=== PATIENT | female | born 1945 | race Caucasian/White ===

== ENCOUNTER → 2021-12-29 12:03 | Outpatient (CLI) | payer MEDICARE, SELFPAY ==
--- NOTE | ~2021-12-29 | MM_ITS ---
EXAMINATION: MM screening [facility] HISTORY: Screening mammogram TECHNIQUE: Craniocaudal and mediolateral oblique 3-D tomosynthesis images were obtained and synthetic 2-D images were generated. CAD analysis was submitted and interpreted. COMPARISON: 01/27/2019, 02/01/2017, 09/22/2015 BREAST PARENCHYMAL COMPOSITION: There are scattered areas of fibroglandular density. FINDINGS: A stable mass in the upper outer quadrant of the right breast is considered benign given th e lack of interval change. There is no suspicious mass, calcification, or architectural distortion to suggest malignancy in either breast. There has been no suspicious interval change. IMPRESSION: 1. No mammographic evidence of malignancy. 2. Recommend routine screening mammography in one year. BI-RADS Category 2: Benign finding(s). Reviewed, dictated and finalized at location A.
--- NOTE | ~2021-12-29 | DEXA_ITS ---
Bone Density Report Name: DIONNE RUIZ Age: 76 Sex: Female Ethnicity: White Date of : 1945 Indication: postmenopausal; screening for osteoporosis; Referring Provider: Marvel Calles Study: Bone densitometry was performed. Exam Date: December 29, 2021 Accession number: [id number] Bone Density: Region BMD T-score Z-score Classification AP Spine (L1-L4) 1.004 -0.4 2.0 Normal Femoral Neck (Left) 0.684 -1.5 0.6 Osteopenia Total Hip (Left) 0.837 -0.9 0.9 Normal Femoral Neck (Right) 0.741 -1.0 1.1 Normal Total Hip (Right) 0.873 -0.6 1.2 Normal Total Hip Mean 0.855 -0.8 1.1 Normal World Health Organization criteria for BMD impression classify patients as: Normal (T-score at or above -1.0), Osteopenia (T-score between -1.0 and -2.5), or Osteoporosis (T-score at or below -2.5). 10-year Fracture Risk(1): Major Osteoporotic Fracture 11% Hip Fracture 1.9% Reported Risk Factors: [place] (), Neck BMD=0.684, BMI=27.5 (1) FRAX(R) Version 3.08. Fracture probability calculated for an untreated patient. Fracture probability may be lower if the patient has received treatment. Previous Exams: Region Exam Age BMD T-score BMD Change BMD Change Date g/cm2 vs Baseline vs Previous AP Spine(L1-L4) 12/29/2021 76 1.004 -0.4 0.042* 0.042* 01/27/2019 73 0.962 -0.8 Total Hip(Left) 12/29/2021 76 0.837 -0.9 0.009 0.009 01/27/2019 73 0.828 -0.9 Total Hip(Right) 12/29/2021 76 0.873 -0.6 0.014 0.014 01/27/2019 73 0.859 -0.7 *Denotes significance at 95% confidence level, LSC for AP Spine = 0.022 g/cm2, LSC for Total Hip = 0.027 g/cm2 Clinical Information Provided by Patient: Patient maximum height was 66 Menopause Age: 60 Does not regularly consume dairy products Onset of menses at age 15 Number of children 0 Impression: The patient has low bone mass, based on the Left Femoral Neck T-score. The patient has an estimated ten-year risk of hip fracture of 1.9% and an estimated ten-year risk of major fracture of 11%, based on the WHO FRAX algorithm. No significant bone loss was observed. Discussion: BONE DENSITY IS LOW AT ONE OR MORE SKELETAL SITES. This patient's lowest T-score is low at one or more skeletal sites. It meets the World Health Organization's (WHO) criteria for ?low bone mass? (T-score between -1.0 and -2.5). The patient's 10-year risk of fracture as calcul
== END ==
PROVIDERS: PCP Family Medicine; Visit Provider Family Medicine
DX: Z12.31 Encounter for screening mammogram for malignant neoplasm of breast (principal); Z78.0 Asymptomatic menopausal state; M85.852 Other specified disorders of bone density and structure, left thigh
CPT/HCPCS: 77063; 77067; 77080

== ENCOUNTER 2022-10-25 09:33 | Emergency (ER) | payer OTHER, MEDICARE, SELFPAY ==
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
[2022-10-25 09:52] VITALS: BP 156/72; PULSE 72; RESP 16; TEMP 36.6; O2SAT 99
== END 2022-10-25 10:58 | disposition home or self-care (01) ==
PROVIDERS: Emergency Provider Nurse Practitioner; PCP Family Medicine
DX: S80.12XA Contusion of left lower leg, initial encounter (principal); W20.8XXA Other cause of strike by thrown, projected or falling object, initial encounter; E78.00 Pure hypercholesterolemia, unspecified
CPT/HCPCS: 73590; 99213; G0463

== ENCOUNTER 2023-10-23 13:27 | Outpatient (CLI) | payer MEDICARE, SELFPAY ==
--- NOTE | ~2023-10-23 | US_ITS ---
Soft tissue ultrasound of the left upper extremity CLINICAL HISTORY: Palpable lump TECHNIQUE: Sonographic imaging performed of the left wrist region at the area of palpable concern. FINDINGS: At the area of concern, there is a 1.0 x 0.9 x 0.6 cm cyst, which appears to connect via a thin neck of fluid to an additional cystic area measuring 1.0 x 0.7 x 0.7 cm. No solid or otherwise s uspicious lesion identified sonographically. IMPRESSION: Somewhat bilobed ganglion cyst, as detailed above. Reviewed, dictated and finalized at location M.
== END 2023-10-23 13:28 ==
LOC: GOSHIMG 13:27
PROVIDERS: PCP Family Medicine; Visit Provider Physician Assistant
DX: R22.32 Localized swelling, mass and lump, left upper limb (principal)
CPT/HCPCS: 76882

== ENCOUNTER 2024-03-13 13:44 | Outpatient (CLI) | payer MEDICARE, SELFPAY ==
--- NOTE | ~2024-03-13 | MM_ITS ---
EXAMINATION: MM screening [facility] HISTORY: Screening TECHNIQUE: Craniocaudal and mediolateral oblique 3-D tomosynthesis images were obtained and synthetic 2-D images were generated. CAD analysis was submitted and interpreted. COMPARISON: Comparison to multiple prior studies sequentially, with oldest reviewed study dated 09/21. BREAST PARENCHYMAL COMPOSITION: Not dense: There are scattered areas of fibroglandular density. FINDINGS: There is no evidence of suspicious mass, calcification, or architectural distortion to sugg est malignancy in either breast. There has been no suspicious interval change. IMPRESSION: 1. No mammographic evidence of malignancy. 2. Recommend routine screening mammography in one year. BI-RADS Category 1: Negative Reviewed, dictated and finalized at location B. E HAND
== END 2024-03-13 13:45 | disposition home or self-care (01) ==
LOC: MICIMG 13:45
PROVIDERS: PCP Family Medicine; Visit Provider Family Medicine
DX: Z12.31 Encounter for screening mammogram for malignant neoplasm of breast (principal)
CPT/HCPCS: 77063; 77067

== ENCOUNTER 2024-04-09 05:54 | Day surgery (SDC) | payer MEDICARE, SELFPAY ==
[2024-04-09 06:40] VITALS: BP 178/76; PULSE 60; RESP 16; TEMP 37.1; O2SAT 98
[2024-04-09] MEDS: LACTATED RINGERS 1,000 ML 30 ML IV CONT (06:40)
--- NOTE | 2024-04-09 06:43 | WPDHPUPDATE1 ---
History and Physical Update Update Date/Time: 04/09/24 06:43 Patient seen and examined in pre-operative holding area. No interval change in medical history or symptoms. Patient recalls previous discussion of benefits and alternatives to procedure. Continues to desire to proceed with left ulnar wrist ganglion excision. Reviewed procedure, post-op expectations and risks including but not limited to bleeding, infection, injury to tendon/nerve/vessel, decreased hand function, stiffness, RSD, no change or worsening of symptoms, recurrence. I discussed the possible use of assistants and their participation in the case. Patient stated understanding and signed the consent form wishing to proceed.
--- NOTE | 2024-04-09 06:44 | W.PM.PROC2 ---
Procedure Note - Detailed Date of Procedure 04/09/24 Pre-op Diagnosis Ganglion Cyst Left Ulnar Wrist Post-op Diagnosis Same Procedure Performed left ulnar wrist ganglion excision Surgeon Waldo Stock MD Precision Assembler Bench beto zuluaga pa-c Anesthesia MAC Description of Procedure INFORMED CONSENT: The patient was seen and examined and marked in the pre-op area.? The patient signed the consent form. PROCEDURE IN DETAIL:The patient taken back to OR on the stretcher in supine position. Time out performed with anesthesia, surgeon and staff agreeing on patient's name site and surgery to be performed SCDs were placed on the lower extremities and inflated. A tourniquet was placed on {left} upper extremity and antibiotics given IV After anesthesia administered sedation I injected {7}cc 1%lido with epi and 0.5% marcaine plain at the operative site The?{left upper extremity}?was prepped and draped in sterile fashion the??{left upper extremity} was? exsanguinated with Esmarch bandage and tourniquet inflated to 250mmHg I proceeded with making a longitudinal incision over the left ulnar wrist mass through skin and dermis with a 15 blade scalpel. Littler scissors were used to spread down to the cyst capsule. I proceeded with circumferential dissection around this cyst that appeared to be coming from the ulnocarpal joint. The mass was transected at the joint capsule with bipolar cautery. I irrigated with normal saline. I repaired the capsular defect with 4-0 Vicryl suture. 4-0 Monocryl was used for dermal and subcuticular closure. A dressing of Dermabond, 4x4, lauren, and a volar splint was applied for patient safety, security, and comfort and secured with an maxi bandage after the tourniquet was let down noting the hand was warm and well perfused. The patient was then awaken from anesthesia and transferred to the recovery room in stable condition.? Complications - none EBL- 0cc Disposition - home in stable conditions Beto Zuluaga PA-C was essential for positioning, retraction, closure and dressing placement [facility] Billing Surgery - Charge Forward: Surgery Billing ([id number] for beto)
--- NOTE | 2024-04-09 06:52 | P.PNAN_ITS ---
Anes - Initial Pre Proc Eval Procedure: Operation Date: 04/09/24 07:30 Proposed Procedures p Excision Ganglion Cyst Left Ulnar Wrist - Waldo Stock MD Date/Time: 04/09/24 06:52 Surgeon: Waldo Stock MD Pre Op Diagnosis: Ganglion Cyst Left Ulnar Wrist Patient Data Age: 78 Gender: F Height: 1.65 m Weight: 75.35 kg Last Vital Signs Temp 37.1 C 04/09/24 06:40 Pulse 60 04/09/24 06:40 Resp 16 04/09/24 06:40 BP 178/76 H 04/09/24 06:40 Pulse Ox 98 04/09/24 06:40 O2 Del Method Room Air 04/09/24 06:40 Allergies Allergy/AdvReac Type Severity Reaction Status Date / Time Penicillins Allergy Severe ANAPHYLACTIC Verified 04/09/24 06:13 SHOCK codeine Allergy Unknown HEART Verified 04/09/24 06:13 PALPITATIONS erythromycin base Allergy Unknown NAUSEA,STOMACH Verified 04/09/24 06:13 PAIN Home Medications ?Medication ?Instructions ?Recorded ?Confirmed ?Type buspirone 5 mg tablet 5 mg PO BID PRN anxiety #180 tabs 05/27/23 04/09/24 Rx levothyroxine 25 mcg tablet 12.5 mcg (1/2 x 25 mcg) PO DAILY 01/06/24 04/09/24 Rx #45 tabs cholecalciferol (vitamin D3) 1 tablet PO DIRECTED 03/23/24 04/09/24 History diphenhydramine HCl 1 tablet PO DIRECTED PRN 03/23/24 04/09/24 History Allergies psyllium husk 1 cap PO DIRECTED 03/23/24 04/09/24 History Patient hx anesthesia problems: none Family hx anesthesia problems: none Results Review: All pre-operative results and documents have been reviewed as part of the pre- operative evaluation. [facility] Past Medical History Medical History (Updated 04/07/24 @ 07:51 by Kevin Fontenot DO) Hypothyroidism Pure hypercholesterolemia Skin lesion Family History Family History Sibling Hypertension Mother Family history of malignant neoplasm of thyroid Family history of throat cancer Social History Social History (Reviewed 02/24/24 @ 13:57 by LILA Martinez Smoking status: Never smoker Second hand tobacco smoke exposure: No Alcohol intake: current Alcohol use details: occasional Substance use: never Substance use type: does not use Living arrangements: with family Occupation/Education: retired Gender identity (if verbalized by the patient): Female Sexual Orientation (if Verbalized by the Patient): Straight or Heterosexual Anes - Eval Final PreProcedure Day of Procedure 04/09/24 06:52 Patient weight: overweight Heart: regular rate and rhythm Lungs: clear to auscultation Airway: Mallampati scale class II Neurological: alert and oriented Last oral intake: >/= 8 hours ASA classification: II Emergent: no Anesthetic plan: proceed Anesthesia type and monitoring: general GIVS and standard monitoring Results Review: All pre-operative results and documents have been reviewed as part of the pre- operative evaluation. Informed Consent: The patient's anesthetic plan and its attendant risks and benefits were discussed with the patient/family/POA. Questions were solicited and answers provided to the satisfaction of the patient/family/POA.
[2024-04-09] MEDS: BUPivacaine HCL 0.5% PF 30 ML VIAL 5 ML INFILTRATE (07:21)
[2024-04-09] MEDS: ceFAZolin SODIUM 2 GM/20 ML SW SYRINGE IV PUSH (07:21)
[2024-04-09 07:50] VITALS: BP 113/60; PULSE 57; RESP 16; O2SAT 97
--- NOTE | 2024-04-09 07:59 | WPDANESPN ---
Anes - Prog Note Post-Op Date/Time: 04/09/24 07:59 Cardiovascular status: normal Respiratory status: normal Airway patency: baseline Mental status: baseline Post-Op hydration status: normal Vital Signs: Last Vital Signs Temp 37.1 C 04/09/24 06:40 Pulse 57 L 04/09/24 07:50 Resp 16 04/09/24 07:50 BP 113/60 04/09/24 07:50 Pulse Ox 97 04/09/24 07:50 O2 Del Method Room Air 04/09/24 07:50 Pain Score (VAS): 0 Post-procedural complaints: none Patient Feedback: Patient satisfied with anesthetic care. Other Findings: Patient vital signs back to baseline. Patient denies nausea and vomiting. Patient's pain under control. Patient OK for discharge.
[2024-04-09 08:00] VITALS: BP 121/68; PULSE 58; RESP 16; O2SAT 100
[2024-04-09 08:10] VITALS: BP 117/91; PULSE 51; RESP 16; O2SAT 100
== END 2024-04-09 08:26 ==
PROVIDERS: PCP Family Medicine; Visit Provider Plastic Surgery
CPT/HCPCS: 25111

== ENCOUNTER 2024-04-09 08:02 | Outpatient (NON) | payer MEDICARE, SELFPAY ==
--- OUTSIDE RECORDS SUMMARY | 2024-04-17 15:51 | XMS_ITS | Encounter Summary ---
Author Organization [facility] Address [facility] [place] [address] [place] [address] Care Team Providers Care Clerical Warehouseman Name Role Phone Unavailable Primary Care Provider Unavailabl e Encounter Details Date Type Department Care Team (Late st Contact Info) Description 09/18/2011 Abstract [facility] [address] [place], [place] [id number] Jaswant Chávez MD [address] [place] [address] Social History Tobacco Use Types Packs/Day Years Used Date Smoking Tobacco: Never Assessed Comments Unknown Sex and Gender Information Value Date Recorded Sex Assigned at Not on file Legal Sex Female 8:15 PM CDT Gender Identity Not on file Sexual Orientation Not on file documented as of this encounter Plan of Treatment Not on file documented as of this encounter Visit Diagnoses Diagnosis Sensorineural hearing loss Sensorineural hearing loss, unspecified documented in this encounter
--- OUTSIDE RECORDS SUMMARY | 2024-04-17 15:51 | XMS_ITS | Clinical Summary ---
Author Organization [facility] Address [address] [place] [address]. [place], [place] [id number] [place] [id number] Care Team Providers Care Guest Relations Agent Name Role Phone Unavailable Primary Care Provider Unavailabl e Social History Tobacco Use Types Packs/Day Years Used Date Smoking Tobacco: Never Assessed Comments Unknown Sex and Gender Information Value Date Recorded Sex Assigned at Not on file Legal Sex Female 8:15 PM CDT Gender Identity Not on file Sexual Orientation Not on file Plan of Treatment Health Maintenance Due Date Last Done Comments Hepatitis C 10/27/1965 DTaP, Tdap and Td Vaccines ( 1 - Tdap) 10/27/1966 Zoster Vaccines (1 of 2) 10/27/1997 Dexa Scan (General) 10/27/2012 Pneumococcal Vaccine: 65+ Ye ars (1 of 1 - PCV) 10/27/2012 RSV Immunization or 60+ Years (1 - 1-dose 75+ series) 10/27/2022 COVID-19 Vaccine ( - 2023-2 5 season) 2023 Influenza Adult (#1) 2024 Meningococcal Vaccine Aged Out No darren perla eligible based on patient's age to complete this topic RSV Immunizations Under 20 Months Aged Out No longer eligible based on patient's age to complete this topic
--- OUTSIDE RECORDS SUMMARY | 2024-04-17 16:03 | XMS_ITS | Encounter Summary ---
Author Organization [facility] Address [address] [place] [address] Care Team Providers Care Operator Prefinish Name Role Phone Unavailable Primary Care Provider Unavailabl e Reason for Visit * Reason Onset Date Comments Information 11/02/2018 YAMILETH KEARNEY PCP REFERRAL Encounter Details Date Type Department Care Team (Late st Contact Info) Description 11/02/2018 Nurse Triage Verna Nurse saloon keeper [address] [place] [address] Jose Guaman Social History Tobacco Use Types Packs/Day Years Used Date Smoking Tobacco: Never Assessed Sex and Gender Information Value Date Recorded Sex Assigned at Not on file Gender Identity Not on file Sexual Orientation Not on file documented as of this encounter Miscellaneous Notes * Telephone Encounter - Jose Guaman - 11/02/2018 10:09 AM CDT Images from the original note were not included. Reason for Disposition ??? Patient instructed how to find an [facility] provider? Protocols used: SERGIO CARSON Per conversation with patient the following PCP's were referred to and patient stated will contact herself in the morning to establish care with. * Telephone Encounter - Jose Guaman - 11/02/2018 9:47 AM CDT Regarding: PCP referral ----- Message from Jose Guaman sent at 11/02/2018 9:47 AM CDT ----- Patient's address on file: No address on file. Patient's current location: Same as above documented in this encounter Plan of Treatment Not on file documented as of this encounter Visit Diagnoses Not on filedocumented in this encounter
--- OUTSIDE RECORDS SUMMARY | 2024-04-17 16:03 | XMS_ITS | Clinical Summary ---
Author Organization [facility] Address [address] [place] [address] Care Team Providers Care Licensing Services Clerk Name Role Phone Unavailable Primary Care Provider Unavailabl e Social History Tobacco Use Types Packs/Day Years Used Date Smoking Tobacco: Never Assessed Sex and Gender Information Value Date Recorded Sex Assigned at Not on file Gender Identity Not on file Sexual Orientation Not on file Plan of Treatment Health Maintenance Due Date Last Done Comments DTAP/TDAP/TD VACCINES (1 - Tdap) 10/27/1966 ZOSTER VACCINE (1 of 2) 10/27/1997 OSTEOPOROSIS SCREENING 10/27/2012 PNEUMOCOCCAL VACCINE 65+ YEARS (1 of 1 - PCV) 10/28/19 13 RSV VACCINE (60+ or ) (1 - 1-dose 75+ series) 10/27/2022 INFLUENZA VACCINE (#1) 2023
== END 2024-04-09 08:03 | disposition home or self-care (01) ==
PROVIDERS: PCP Family Medicine; Visit Provider Plastic Surgery
DX: M67.432 Ganglion, left wrist (principal)
CPT/HCPCS: 88305

== ENCOUNTER 2025-02-08 17:00 | Outpatient (CLI) | payer MEDICARE, SELFPAY ==
--- OUTSIDE RECORDS SUMMARY | 2025-02-08 17:04 | XMS_ITS | Clinical Summary ---
Author Organization [facility] Address [address] [place] [address] Care Team Providers Care Medical Record Specialist Name Role Phone Unavailable Primary Care Provider Unavailabl e Social History Tobacco Use Types Packs/Day Years Used Date Smoking Tobacco: Never Assessed Comments Unknown Sex and Gender Information Value Date Recorded Sex Assigned at Not on file Legal Sex Female 9:46 AM CDT Gender Identity Not on file Sexual Orientation Not on file Plan of Treatment Health Maintenance Due Date Last Done Comments DTAP/TDAP/TD VACCINES (1 - Tdap) 10/27/1966 PNEUMOCOCCAL VACCINE 50+ YEARS (1 of 1 - PCV) 10/27/18 98 ZOSTER VACCINE (1 of 2) 10/27/1997 OSTEOPOROSIS SCREENING 10/27/2012 RSV VACCINE (60+ or ) (1 - 1-dose 75+ series) 10/27/2022 INFLUENZA VACCINE (#1) 2024
--- OUTSIDE RECORDS SUMMARY | 2025-02-08 17:04 | XMS_ITS | Clinical Summary ---
Author Organization [facility] Address [facility] [place] [address] Care Team Providers Care Soccer Commentator Name Role Phone Unavailable Primary Care Provider [...] Td Vaccines ( 1 - Tdap) 10/27/1966 Pneumococcal Vaccine: 50+ Ye ars (1 of 1 - PCV) 10/27/1997 Zoster Vaccines (1 of 2) 10/27/1997 Dexa Scan (General) 10/27/2012 RSV Immunization or 60+ Years (1 - 1-dose 75+ series) 10/27/2022 COVID-19 Vaccine ( - 2024-2 6 season) 2024 Influenza Adult (#1) 2025 Hepatitis A Vaccines Aged Out No long er eligible based on patient's age to complete this topic Meningococcal B Vaccine Aged Out No l onger eligible based on patient's age to complete this topic Meningococcal Vaccine Aged Out No darren perla eligible based on patient's age to complete this topic RSV Immunizations Under 20 Months Aged Out No longer eligible based on patient's age to complete this topic
[2025-02-08 17:33] LABS: Add Urine Microscopic? NO; Appearance Urine Clear (Clear); Glucose Urine UA Negative (Negative); Leukocyte Esterase Ur Negative LEU/UL (Negative); Nitrate Urine Negative (Negative); Specific Grav Ur 1.017 (1.001-1.035)
[2025-02-08 17:34] LABS: Hematocrit 44.7 % (37.0-47.0); Hemoglobin 15.3 g/dL (12.0-15.0); Mean Corpuscular HGB Conc 34.2 g/dl (32-36); Mean Corpuscular Hemoglobin 32.8 pg (26-34); Mean Corpuscular Volume 95.9 fl (80-100); Platelet Count Result 215 k/mm3 (150-375); Red Blood Count 4.66 M/mm3 (4.2-5.4); White Blood Count 7.0 K/mm3 (4.5-10.0)
[2025-02-08 17:49] LABS: Alanine Aminotransferase 24 U/L (6-35); Albumin Level 4.4 g/dL (3.5-5.1); Alkaline Phosphatase 91 U/L (38-126); Anion Gap 8 mmol/L (4-12); Aspartate Amino Transferase 30 U/L (14-36); Bilirubin,Total 1.4 mg/dL (0.2-1.3); Blood Urea Nitrogen 19 mg/dL (7-17); Calcium 8.6 mg/dL (8.4-10.2); Carbon Dioxide 30 mmol/L (22-30); Chloride 103 mmol/L (98-107); Estimated Glomerular Filt Rate > 60; Glucose 89 mg/dL (65-110); Lipase 534 U/L (23-300); Potassium 3.5 mmol/L (3.4-5.0); Sodium 141 mmol/L (137-145); Total Protein 7.7 g/dL (6.3-8.2)
== END 2025-02-08 17:01 | disposition home or self-care (01) ==
LOC: ANHLAB 17:02
PROVIDERS: PCP Family Medicine; Visit Provider Physician Assistant Medical
DX: R10.9 Unspecified abdominal pain (principal)
CPT/HCPCS: 36415; 80053; 81003; 83690; 85027

== ENCOUNTER 2025-02-10 11:01 | Outpatient (CLI) | payer MEDICARE, SELFPAY ==
--- NOTE | ~2025-02-10 | CT_ITS ---
EXAMINATION: CT abdomen pelvis w con DATE: 02/10/2025 11:37 INDICATION: Epigastric pain TECHNIQUE: Computed tomography (CT) of the abdomen and pelvis was performed with 100 mL Omnipaque-350 intravenous contrast. Automated exposure control and iterative reconstruction technique were employed. The dose-length product was 548.20 mGy-cm. COMPARISON: None FINDINGS: Mild dependent atelectasis in the lower lungs. Heart size is normal. No pericardial or pleural effusion. Mild dilation the common bile duct which is within normal limits post cholecystectomy. Diffuse hepatic steatosis. Spleen, pancreas, right kidney and bilateral adrenal glands are normal. There are a couple nonobstructing stones at the lower pole calyces of the left kidney the larger measuring 6 mm in maximal diameter. Fluid in the proximal colon consistent with nonspecific diarrhea. Small bowel and appendix are normal. Decompressed bladder, anteverted uterus and bilateral adnexa are unremarkable. No free intraperitoneal gas or fluid. Moderate to sever lumbar spondylosis. IMPRESSION: 1. Nonspecific diarrhea. No other acute intra abdominal or pelvic process. 2. Nonobstructing left nephrolithiasis. Reviewed, dictated and finalized at location A. OMIST RESEARCH ASSISTANT
--- OUTSIDE RECORDS SUMMARY | 2025-02-11 10:43 | XMS_ITS | Clinical Summary ---
Author Organization [employer] [facility] Address [address] [place] [address] Care Team Providers Care Sander Hand Name Role Phone Unavailable Primary Care Provider [...]
--- OUTSIDE RECORDS SUMMARY | 2025-02-11 10:43 | XMS_ITS | Patient Health Record ---
Author Organization [facility] Address [address] [place], [place] [id number] Care Team Providers Care Parachute Inspector Name Role Phone MICH EVELIN Unavailable [phone] Evelin Porter Unavailable Unavailable Reason For Referral No Information Social History Social History Additional Details Category Social Info Options Details Migrated Social History Migrated Social History Alcohol intake : , Smoking Status : Never smoked , History of tobacco use : Plan Of Treatment No Information Insurance Providers Payer Name Payer Address Payer Phone Subscriber Number Group Number Insured Name Patient Relationship to Insured Coverage Start Date Coverage End Date [facility] ([facility] ATTN CLAIMS [address] [place] [address] [id number] ARA [id number] Spouse - patient is the spouse of the insured
--- OUTSIDE RECORDS SUMMARY | 2025-02-11 10:43 | XMS_ITS | Clinical Summary ---
Author Organization [facility] Address [facility] [place] [address] Care Team Providers Care Counter Sales Person Name Role Phone Unavailable Primary Care Provider [...]
== END 2025-02-10 11:02 | disposition home or self-care (01) ==
PROVIDERS: PCP Family Medicine; Visit Provider Physician Assistant Medical
DX: R10.13 Epigastric pain (principal); R74.8 Abnormal levels of other serum enzymes; R19.7 Diarrhea, unspecified; N20.0 Calculus of kidney
CPT/HCPCS: 74177; Q9967